=== PATIENT | female | born 1980 | race Caucasian/White ===

== ENCOUNTER 2019-12-01 10:24 | Emergency (ER) | payer BC, SELFPAY ==
[2019-12-01] MEDS ORDERED: BUPIVACAINE 0.5% PF 10 ML VIAL ONE (11:21)
[2019-12-01] MEDS ORDERED: TETANUS & DIPHTHERIA TOX,ADULT 0.5 ML VIAL ONE (11:22)
[2019-12-01] MEDS ORDERED: LIDOCAINE 1% MPF 30 ML VIAL ONE (11:22)
--- NOTE | 2019-12-01 11:39 | RAD REPORT ---
EXAM DESCRIPTION: CT - Head Brain Wo Cont - 12/01/2019 11:18 am CLINICAL HISTORY: fall, injury Fall, head trauma COMPARISON: Facial Bones W/ Mpr dated 12/01/2019 TECHNIQUE: All CT scans are performed using dose optimization technique as appropriate and may inclu de automated exposure control or mA/KV adjustment according to patient size. FINDINGS: No intracranial hemorrhage, hydrocephalus or extra-axial fluid collection.No areas of brai n edema or evidence of midline shift. Right-sided maxillary sinus fracture is seen with moderate hemorrhagic material in the right maxillar y antrum. Please refer to dedicated CT face study for further details. The calvarium is intact. IMPRESSION: No acute intracranial abnormality.
--- NOTE | 2019-12-01 11:44 | RAD REPORT ---
EXAM DESCRIPTION: CT - CTFB CLINICAL HISTORY: fall, right sided facial swelling Trauma, facial pain and swelling COMPARISON: No comparisons TECHNIQUE: Axial 2 mm thick images of the face were obtained with sagittal and coronal reconstructio n images. All CT scans are performed using dose optimization technique as appropriate and may include automated exposure control or mA/KV adjustment according to patient size. FINDINGS: Moderately displaced fracture of the anterior wall of the right maxillary antrum is seen. Moderate hemorrhage is present within the right maxillary sinus. No additional facial bone fracture i s evident.The mandible is intact. The globes and orbital contents are grossly unremarkable. IMPRESSION: Moderate inwardly displaced fracture of the anterior wall right maxillary antrum with he morrhagic material seen within the sinus.
--- NOTE | 2019-12-01 12:35 | ER ---
Nurse's Notes [facility] Name: Megan Bal Age: 39 yrs Sex: Female : 1980 Arrival Date: 12/01/2019 Time: 10:28 Bed 15 Private MD: Diagnosis: Lip Laceration;Right Maxillary Fracture Presentation: 11/30 10:48 Chief complaint: Patient states: tripped and hit face on door jam last night around em 1999, right facial swelling noted, also lip lac. noted to top lip, pt reports cracked teeth, denies LOC or neck pain. Coronavirus screen: Patient denies a cough. Patient denies shortness of breath or difficulty breathing. Patient denies measured and/or subjective temperature greater than 100.4F prior to today's visit. Patient denies travel on a cruise ship or to a country the [facility] currently lists as an affected area. Patient denies contact with known and/or suspected case of COVID-19. Ebola Screen: Patient negative for fever greater than or equal to 101.5 degrees Fahrenheit, and additional compatible Ebola Virus Disease symptoms Patient denies exposure to infectious person. Patient denies travel to an Ebola-affected area in the 21 days before illness onset. No symptoms or risks identified at this time. Initial Sepsis Screen: Does the patient meet any 2 criteria? No. Patient's initial sepsis screen is negative. Does the patient have a suspected source of infection? No. Patient's initial sepsis screen is negative. Risk Assessment: Do you want to hurt yourself or someone else? Patient reports no desire to harm self or others. Onset of symptoms was November 30, 2019. 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 - Social history:: Smoking status: Patient denies any tobacco usage or history of. Screenin:10 Abuse screen: Denies threats or abuse. Denies injuries from another. Nutritional jr10 screening: No deficits noted. Tuberculosis screening: No symptoms or risk factors identified. Fall Risk None identified. Assessment: 11:10 General: Appears in no apparent distress. Behavior is calm, cooperative. Pain: jr10 Complains of pain in right cheek and mouth Pain began 1 day ago. Neuro: No deficits noted. 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 Cardiovascular: No deficits noted. Respiratory: No deficits noted. GI: No deficits noted. : No deficits noted. EENT: small lac noted to right side upper lip. Derm: Bruising that is dark purple. Musculoskeletal: Swelling present in right cheek. Injury Description: Bruise sustained to right cheek Laceration sustained to upper andry border and upper lip was sustained 6-12 hours ago. no active bleeding noted at this time. Vital Signs: 10:48 BP 144 / 94; Pulse 85; Resp 18; Temp 98.5(O); Pulse Ox 100% on R/A; Weight 142.88 kg; em Height 5 ft. 7 in. (170.18 cm); Pain 6/10; 12:40 BP 150 / 100; Pulse 80; Resp 20; Temp 98.5; Pulse Ox 100% ; Pain 0/10; jr10 10:48 Body Mass Index 49.33 (142.88 kg, 170.18 cm) em ED Course: 10:28 Patient arrived in ED. mr 10:51 Triage completed. em 10:52 Arm band placed on. em 10:53 Sal Driver [facility] 10:53 Oli Yeboah MD is Attending Physician. [facility] 11:05 Rama Mars, MYA is Primary Nurse. jr10 11:10 Patient has correct armband on for positive identification. Bed in low position. Call jr10 light in reach. Side rails up X 1. 11:10 Wound care: to laceration was cleaned with with peroxide for cleansing of dried blood, jr10 Patient tolerated well. 11:18 CT Head Brain wo Cont In Process Unspecified. EDMS 11:18 CT Facial Bones W/O Con In Process Unspecified. EDMS 12:12 Assist provider with laceration repair using sutures. Set up tray. Performed by Sal CASTANO Patient tolerated well. 12:33 Araceli Hartley MD is Referral Physician. [facility] 12:45 Patient did not have IV access during this emergency room visit. jr10 Administered Medications: 11:29 Drug: Tetanus-Diphtheria Toxoid Adult 0.5 ml {Graduate Student: [employer]. Exp: jr10 06/30/2022. Lot #: [id number]. } Route: IM; Site: right deltoid; 12:02 Drug: Lidocaine (1 %) 10 ml {Note: administered via OMAIRA Huang for lac repair.} Volume: jr10 20 ml; Route: Infiltration; 12:40 Follow up: Response: No adverse reaction jr10 12:44 Not Given (not given via provider): Marcaine (0.5 %) 10 ml 10 ml Infiltration once jr10 Outcome: 12:34 Discharge ordered by MD. rodrigo 12:45 Discharged to home jr10 12:45 Discharged to home ambulatory. 12:45 Condition: good 12:45 Discharge instructions given to patient, Instructed on discharge instructions, follow up and referral plans. Demonstrated understanding of instructions, follow-up care, medications, Prescriptions given X 1. 12:46 Patient left the ED. jr10 Signatures: Dispatcher [employer] EDMS Sal Driver PA PA jmm Rivera, Mary mr Vaibhav Quinn, RN RN Rama Neumann, MYA RN jr10 Corrections: (The following items were deleted from the chart) 10:55 10:48 Chief complaint: Patient states: tripped and hit face on door jam last night em around 1999, right facial swelling noted, pt reports cracked teeth, denies LOC or neck pain em 12:44 12:03 Marcaine (0.5 %) 10 ml 10 ml Infiltration 10 ml jr10 jr10
--- NOTE | 2019-12-01 12:35 | EDPHYS ---
Physician Documentation [facility] Name: Megan Bal Age: 39 yrs Sex: Female : 1980 Arrival Date: 12/01/2019 Time: 10:28 Bed 15 Private MD: ED Physician Oli Yeboah HPI: 11/30 12:27 This 39 yrs old Female presents to ER via Ambulatory with complaints of Fall jmm Injury. 12:27 The patient or guardian reports injury. Onset: The symptoms/episode began/occurred jmm acutely, last night. Associated signs and symptoms: Loss of consciousness: This patient did not experience any loss of consciousness. This is a 39 year old female with no chronic medical conditions that presents to the ED with complaints of right sided facial swelling, and a lip laceration following a fall which occurred at 8 pm last night. Denies LOC. Patient states she slipped and hit a door. Denies neck pain. . 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 - Social history:: Smoking status: Patient denies any tobacco usage or history of. ROS: 12:27 Constitutional: Negative for fever, chills, and weight loss, Cardiovascular: Negative jmm for chest pain, palpitations, and edema, Respiratory: Negative for shortness of breath, cough, wheezing, and pleuritic chest pain. 12:27 Skin: Positive for laceration(s). 12:27 All other systems are negative. Exam: 12:27 Constitutional: This is a well developed, well nourished patient who is awake, alert, jmm and in no acute distress. 12:27 Eyes: EOMI, no conjunctival erythema appreciated ENT: Moist Mucus Membranes Neck: Trachea midline, Supple Chest/axilla: Normal chest wall appearance and motion. Cardiovascular: Regular rate and rhythm. No edema appreciated Respiratory: Normal respirations, no respiratory distress appreciated Abdomen/GI: Non distended, soft Back: Normal ROM 12:27 Head/face: right sided facial swelling appreciated. 12:27 Skin: 1 cm laceration noted to the upper lip. 12:27 Neuro: Orientation: is normal, Mentation: is normal, Memory: is normal. 12:27 Psych: Behavior/mood is pleasant, cooperative. Vital Signs: 10:48 BP 144 / 94; Pulse 85; Resp 18; Temp 98.5(O); Pulse Ox 100% on R/A; Weight 142.88 kg; em Height 5 ft. 7 in. (170.18 cm); Pain 6/10; 12:40 BP 150 / 100; Pulse 80; Resp 20; Temp 98.5; Pulse Ox 100% ; Pain 0/10; jr10 10:48 Body Mass Index 49.33 (142.88 kg, 170.18 cm) em Laceration: 12:27 Wound Repair of 1cm ( 0.4in ) subcutaneous laceration to upper lip and upper [facility] border. Distal neuro/vascular/tendon intact. Anesthesia: Local anesthetic administered with 1 mls of 1% lidocaine. Wound prep: Moderate cleansing with betadine by me. Skin closed with 3 5-0 Vicryl using simple sutures and sterile technique. Patient tolerated well. MDM: 11:01 Patient medically screened. rodrigo 12:31 Data reviewed: vital signs, nurses notes. Counseling: I had a detailed discussion with rodrigo the patient and/or guardian regarding: the historical points, exam findings, and any diagnostic results supporting the discharge/admit diagnosis, radiology results, the need for outpatient follow up, to return to the emergency department if symptoms worsen or persist or if there are any questions or concerns that arise at home. ED course: imaging results discussed with the patient along with the need to follow up with ent for reevaluation. Due to prolonged period from injury and laceration repair, i discussed increase risk of infection. Patient will be prescribed prophylactic abx and patient is given strict return precautions. Patient understood and agrees with the plan of care. . 11/30 11:03 Order name: CT Head Brain wo Cont; Complete Time: 11:50 rodrigo 11/30 11:03 Order name: CT Facial Bones W/O Con; Complete Time: 11:50 rodrigo Administered Medications: 11:29 Drug: Tetanus-Diphtheria Toxoid Adult 0.5 ml {Car Carder: [employer]. Exp: 10 06/30/2022. Lot #: [id number]. } Route: IM; Site: right deltoid; 12:02 Drug: Lidocaine (1 %) 10 ml {Note: administered via OMAIRA Huang for lac repair.} Volume: jr10 20 ml; Route: Infiltration; 12:40 Follow up: Response: No adverse reaction jr10 12:44 Not Given (not given via provider): Marcaine (0.5 %) 10 ml 10 ml Infiltration once jr10 Disposition: 12:55 Co-signature as Attending Physician, Oli Yeboah MD I agree with the assessment and kdr plan of care. Disposition: 12/01/19 12:34 Discharged to Home. Impression: Lip Laceration, Right Maxillary Fracture. - Condition is Stable. - Discharge Instructions: Facial Laceration. - Prescriptions for Augmentin 875- 125 mg Oral Tablet - take 1 tablet by ORAL route every 12 hours for 10 days; 20 tablet. - Medication Reconciliation Form, Thank You Letter, Antibiotic Education, Prescription Opioid Use form. - Follow up: Araceli Hartley MD; When: 5 - 6 days; Reason: Recheck today's complaints, Continuance of care, Re-evaluation by your physician. Signatures: Dispatcher [employer] EDMS Oli Yeboah MD MD [facility] Sal Driver PA PA jmm Munoz, Edgar, RN Rama Bertrand RN RN jr10 Corrections: (The following items were deleted from the chart) 12:46 12:34 12/01/2019 12:34 Discharged to Home. Impression: Lip Laceration; Right Maxillary jr10 Fracture. Condition is Stable. Forms are Medication Reconciliation Form, Thank You Letter, Antibiotic Education, Prescription Opioid Use. Follow up: Araceli Hartley; When: 5 - 6 days; Reason: Recheck today's complaints, Continuance of care, Re-evaluation by your physician. rodrigo
[2019-12-01 12:59] VITALS: TEMP 98.5; O2SAT 100
[2019-12-01 13:03] VITALS: BP 150/100
== END 2019-12-01 12:46 | disposition home or self-care (01) ==
LOC: ER 10:24
PROC: 0CQ0XZZ Repair Upper Lip, External Approach (ICD-10-PCS; principal; 2019-12-01)
DX: S01.511A Laceration without foreign body of lip, initial encounter (principal); S02.40CA Maxillary fracture, right side, initial encounter for closed fracture; W01.198A Fall on same level from slipping, tripping and stumbling with subsequent striking against other object, initial encounter; Y93.9 Activity, unspecified; Y92.9 Unspecified place or not applicable; Z23 Encounter for immunization
CPT/HCPCS: 70450; 70486; 76377; 90471; 90714; 99284

== ENCOUNTER 2025-02-20 15:20 | Emergency (ER) | payer OTHER, SELFPAY ==
[2025-02-20 16:04] LABS: Influenza A Ag Negative; Influenza B Ag Negative; SARS-CoV-2 Antigen Rapid Res Negative (Negative)
[2025-02-20] MEDS ORDERED: DIPHENHYDRAMINE 12.5MG/5ML LIQ ONE (16:07)
[2025-02-20] MEDS ORDERED: MAGNES/ALUMIN/SIMET 30ML UCUP ONE (16:07)
[2025-02-20] MEDS ORDERED: LIDOCAINE VISCOUS 2% 10ML ORAL SOLN ONE (16:09)
--- NOTE | 2025-02-20 16:10 | EDPHYS ---
Physician Documentation [facility] Name: Megan Etienne Age: 44 yrs Sex: Female : 1980 Arrival Date: 02/20/2025 Time: 15:20 Bed 9 Private MD: ED Physician Héctor Amaro HPI: 02/20 16:09 This 44 yrs old Female presents to ER via Ambulatory with complaints of Canker sores. kb 16:09 Patient is a 44-year-old female who presents for ulcerations to the mouth that started kb 4 days ago and has gotten worse. Reports fever over the weekend that broke last night. 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 - Infectious Disease History:: Denies. - Social history:: Smoking status: Patient denies any tobacco usage or history of. ROS: 16:07 Constitutional: As per HPI kb Exam: 16:07 Constitutional: This is a well developed, well nourished patient who is awake, alert, kb and in no acute distress. Head/Face: Normocephalic, atraumatic. Respiratory: Respirations even and unlabored. No increased work of breathing. Talking in full sentences Skin: Warm, dry with normal turgor. Normal color. MS/ Extremity: Pulses equal, no cyanosis. Neurovascular intact. Full, normal range of motion. Neuro: Awake and alert, GCS 15, oriented to person, place, time, and situation. 16:07 ENT: Mouth: Oral mucosa: noted to have ulceration(s), Tongue: ulcers, Posterior pharynx: Vital Signs: 15:29 BP 151 / 103; Pulse 99; Resp 19; Temp 98.3; Pulse Ox 100% ; Weight 149.69 kg; Height 5 me1 ft. 7 in. ; Pain 8/10; 16:30 BP 150 / 93; Pulse 97; Resp 20; Temp 98.2; Pulse Ox 100% ; hh1 15:29 Body Mass Index 51.68 (149.69 kg, 170.18 cm) me1 15:29 Pain Scale: Adult me1 MDM: 15:25 Medical Screening Exam initiated kb 16:08 Differential diagnosis: Strep, viral infection, aphthous ulcers. Data reviewed: vital kb signs, nurses notes. Counseling: I had a detailed discussion with the patient and/or guardian regarding the historical points, exam findings, and any diagnostic results supporting the discharge/admit diagnosis, lab results, the need for outpatient follow up, a family practitioner, to return to the emergency department if symptoms worsen or persist or if there are any questions or concerns that arise at home. 02/20 15:34 Order name: Group A Streptococcus Rapid; Complete Time: 15:53 kb 02/20 15:34 Order name: COVID-19 Ag + Flu A+B Ag; Complete Time: 16:07 kb 02/20 15:53 Order name: Throat Culture EDMS Administered Medications: 16:16 Drug: GI Cocktail without - (Maalox PO 30 ml, Lidocaine Mucous Membrane 2 % 15 hh1 ml) PO once Route: PO; 16:35 Follow up: Response: No adverse reaction; Marked relief of symptoms hh1 16:16 Drug: diphenhydrAMINE PO 12.5 mg PO once; mix with gi cocktail, swish and spit Route: hh1 PO; 16:35 Follow up: Response: No adverse reaction; Marked relief of symptoms hh1 Disposition: 17:51 Co-signature as Attending Physician, Héctor Amaro MD I reviewed the patient's care rn provided by the Advanced Practice Provider and agree with the diagnosis and treatment plan. Disposition Summary: 02/20/25 16:10 Discharge Ordered Notes: Location: Home kb Condition: Stable kb Diagnosis - Aphthous ulcers kb Followup: kb - With: Emergency Department - When: As needed - Reason: Worsening of condition Followup: kb - With: Private Physician - When: 2 - 3 days - Reason: Recheck today's complaints, Continuance of care, Re-evaluation by your physician Discharge Instructions: - Discharge Summary Sheet kb - Canker Sores kb Forms: - Medication Reconciliation Form kb - Antibiotic Education kb - Prescription Opioid Use kb - Patient Portal Instructions kb - Leadership Thank You Letter kb Signatures: Dispatch [employer] Shalini Suggs, [facility] SHIFT LEAD-C [facility] SHIFT LEAD-CkHéctor Patton MD MD rn Chichi Leone RN RN me1 Joann May RN RN hh1
--- NOTE | 2025-02-20 16:10 | ER ---
Nurse's Notes [facility] Name: Megan Etienne Age: 44 yrs Sex: Female : 1980 Arrival Date: 02/20/2025 Time: 15:20 Bed 9 Private MD: Diagnosis: Aphthous ulcers Presentation: 02/20 15:29 Chief complaint: Patient states: she has sores on her tongue and inside her cheeks. me1 Painful 12/18. Reports running fever between 101 and 104 starting Thursday also. Coronavirus screen: Vaccine status: Patient reports being unvaccinated. Ebola Screen: No symptoms or risks identified at this time. Initial Sepsis Screen: Does the patient meet any 2 criteria? HR > 90 bpm. Does the patient have a suspected source of infection? No. Patient's initial sepsis screen is negative. Risk Assessment: Do you want to hurt yourself or someone else? Patient reports no desire to harm self or others. Onset of symptoms was February 17, 2025. 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 - Infectious Disease History:: Denies. - Social history:: Smoking status: Patient denies any tobacco usage or history of. Screenin:30 [facility] ED Fall Risk Assessment (Adult) History of falling in the last 3 months, hh1 including since admission No falls in past 3 months (0 pts) Confusion or Disorientation No (0 pts) Intoxicated or Sedated No (0 pts) Impaired Gait No (0 pts) Mobility Assist Device Used No (0 pt) Altered Elimination No (0 pt) Score/Fall Risk Level 0 - 2 = Low Risk Oriented to surroundings, Maintained a safe environment, Educated pt \T\ family on fall prevention, incl call for assistance when getting out of bed, Assessed \T\ reinforced patient's understanding of fall precautions, Hourly rounding (assess needs \T\ fall precautionary measures) done, Used ambulatory aids as needed (educated on \T\ assisted with). Abuse screen: Denies threats or abuse. Denies injuries from another. 16:30 Nutritional screening: No deficits noted. Tuberculosis screening: No symptoms or risk hh1 factors identified. Assessment: 16:30 General: Appears in no apparent distress. Behavior is calm, cooperative, appropriate hh1 for age. Pain: Complains of pain in mouth. Neuro: No deficits noted. Cardiovascular: No deficits noted. Respiratory: No deficits noted. EENT: Reports pain Pt states she has sores in her mouth, c/o pain. Vital Signs: 15:29 BP 151 / 103; Pulse 99; Resp 19; Temp 98.3; Pulse Ox 100% ; Weight 149.69 kg; Height 5 me1 ft. 7 in. ; Pain 8/10; 16:30 BP 150 / 93; Pulse 97; Resp 20; Temp 98.2; Pulse Ox 100% ; hh1 15:29 Body Mass Index 51.68 (149.69 kg, 170.18 cm) wv1 15:29 Pain Scale: Adult [facility] ED Course: 15:25 Patient arrived in ED. im 15:25 Shalini Polanco FNP-C is [facility]. kb 15:25 Héctor Amaro MD is Attending Physician. kb 15:32 Triage completed. me1 15:32 Arm band placed on Patient placed in waiting room. me1 15:36 COVID swab sent to lab. Flu and/or RSV swab sent to lab. Strep swab sent to lab. [facility] 16:01 Joann May, RN is Primary Nurse. 1 16:30 Patient has correct armband on for positive identification. Bed in low position. Call [facility] light in reach. Provided Education on: plan of care, discharge instructions. 16:30 No provider procedures requiring assistance completed. Patient did not have IV access 1 during this emergency room visit. Administered Medications: 16:16 Drug: GI Cocktail without - (Maalox PO 30 ml, Lidocaine Mucous Membrane 2 % 15 hh1 ml) PO once Route: PO; 16:35 Follow up: Response: No adverse reaction; Marked relief of symptoms [facility] 16:16 Drug: diphenhydrAMINE PO 12.5 mg PO once; mix with gi cocktail, swish and spit Route: hh1 PO; 16:35 Follow up: Response: No adverse reaction; Marked relief of symptoms hh1 Medication: 16:30 VIS not applicable for this client. 1 Outcome: 16:10 Discharge ordered by . soumya 16:30 Discharged to home ambulatory, 1 16:30 Condition: good 16:30 Discharge instructions given to patient, Instructed on discharge instructions, follow up and referral plans. medication usage, Demonstrated understanding of instructions, follow-up care, medications, 16:35 Patient left the ED. 1 Signatures: Shalini Polanco, PLASTICS PATTERNMAKER-C PLASTICS PATTERNMAKER-CkDeena Diaz Michelle, RN RN wv1 Joann May, MYA RN 1 Corrections: (The following items were deleted from the chart) 15:32 15:29 Chief complaint: Patient states: she has sores on her tongue and inside her me1 cheeks. Painful 8/10. me1
[2025-02-20 20:22] VITALS: O2SAT 100
[2025-02-20 20:23] VITALS: BP 165/82; TEMP 98.3
== END 2025-02-20 16:35 | disposition home or self-care (01) ==
LOC: ER 15:20
DX: K12.0 Recurrent oral aphthae (principal); I10 Essential (primary) hypertension; F41.9 Anxiety disorder, unspecified; L93.0 Discoid lupus erythematosus; F32.A Depression, unspecified; Z11.52 Encounter for screening for COVID-19
CPT/HCPCS: 87070; 36415; 99283; 87428; Q0163